=== PATIENT | male | born 1965 | race Asian ===

== ENCOUNTER 2020-08-31 14:22 | Emergency (ER) | payer BC ==
[~2020-08-31] VITALS: Ht 170 cm; Wt 73.0 kg
[2020-08-31 14:25] VITALS: TEMP 97.8
[2020-08-31 14:51] LABS: BASO % 0.2 % (0.0-2.0); EOS # 0.1 (0.0-0.7); EOS % 0.4 % (0-4.0); GRAN # 10.9 (1.4-6.5); GRAN % 79.7 % (42.2-75.2); HEMATOCRIT 42.5 % (42.0-52.0); HEMOGLOBIN 14.5 g/dl (13.5-18.0); LYMPH # 1.7 (1.2-3.4); LYMPH % 12.1 % (20.0-51.0); MEAN CELL VOLUME 85 fl (80.0-100.0); MEAN CORPUSCULAR HEMOGLOBIN 29 pg (27.0-31.0); MEAN CORPUSCULAR HGB CONC 34 g/dl (33.0-37.0); MEAN PLATELET VOLUME 9.1 fl (7.4-10.4); MONO % 7.2 % (1.7-9.3); PLATELET COUNT 174 K/mm3 (130-400); RED BLOOD COUNT 5.01 M/mm3 (4.20-5.60); REDCELL DISTRIBUTION WIDTH-CV 11.9 % (11.5-14.5)
[2020-08-31 15:02] LABS: ALANINE AMINOTRANSFERASE 15 U/L (4-49); ALBUMIN 4.1 gm/dL (3.5-5.0); ALKALINE PHOSPHATASE 48 U/L (50-136); ANION GAP 7 mmol/L (7-16); AST,SGOT 32 U/L (15-37); BILIRUBIN,TOTAL 0.5 mg/dL (0.0-1.0); BLOOD UREA NITROGEN 23 mg/dL (9-20); CALCIUM 8.5 mg/dL (8.4-10.2); CARBON DIOXIDE 25 mmol/L (22-30); CHLORIDE 105 mmol/L (98-107); CREATININE, serum 0.92 (0.66-1.25); GLUCOSE 143 mg/dL (74-106); POTASSIUM 3.7 mmol/L (3.4-5.0); SODIUM 136 mmol/L (137-145); TOTAL PROTEIN 6.9 gm/dL (6.4-8.2)
[2020-08-31 15:03] LABS: ALCOHOL(ethanol),MEDICAL < 10 mg/dL
[2020-08-31 16:35] VITALS: BP 146/98; PULSE 72
== END 2020-08-31 16:35 | disposition short-term general hospital (02) ==
LOC: COL.ER 14:22
PROVIDERS: Family Medicine
DX: S02.91XA Unspecified fracture of skull, initial encounter for closed fracture (principal); S06.5X9A Traumatic subdural hemorrhage with loss of consciousness of unspecified duration, initial encounter; R00.1 Bradycardia, unspecified; R03.0 Elevated blood-pressure reading, without diagnosis of hypertension; W05.2XXA Fall from non-moving motorized mobility scooter, initial encounter
CPT/HCPCS: J7030